=== PATIENT | female | born 1995 | race Asian ===

== ENCOUNTER 2023-10-08 10:34 | Emergency (ER) | payer OTHER ==
[~2023-10-08] VITALS: Ht 154.9 cm; Wt 64.1 kg
[2023-10-08 12:03] LABS: BASO % 0.1 % (0.0-1.0); EOS # 0.1 10^3/uL (0.0-0.5); EOS % 0.7 % (0.0-3.0); HEMATOCRIT 34.4 % (36.0-47.0); LYMPH # 1.2 10^3/uL (1.5-5.0); LYMPH % 15.8 % (24.0-44.0); MEAN CORPUSCULAR HEMOGLOBIN 28.4 pg (27.0-33.0); MEAN CORPUSCULAR VOLUME 88.7 fl (80.0-96.0); MONO # 0.4 10^3/uL (0.0-0.8); MONO % 5.8 % (2.0-8.0); NEUTROPHILS # 5.8 10^3/uL (1.5-8.5); NEUTROPHILS % 77.5 % (36.0-66.0); PLATELET COUNT, AUTOMATED 291 10^3/uL (150-450); RED BLOOD COUNT 3.88 10^6/uL (4.00-5.40); WHITE BLOOD COUNT 7.5 10^3/uL (4.0-10.0)
[2023-10-08 12:27] LABS: LIPASE 32 U/L (12-53)
[2023-10-08 12:29] LABS: ALBUMIN 3.3 G/DL (3.2-5.2); ALKALINE PHOSPHATASE 48 U/L (46-116); ALT/SGPT 18 U/L (7.0-40); AST/SGOT 15 U/L (<34); BILIRUBIN,DIRECT 0.2 MG/DL (<0.4); BILIRUBIN,TOTAL 0.5 MG/DL (0.3-1.2); BLOOD UREA NITROGEN 8 MG/DL (9-23); CALCIUM LEVEL 8.5 MG/DL (8.5-10.1); CARBON DIOXIDE LEVEL 25 MMOL/L (20-31); CHLORIDE LEVEL 107 MMOL/L (98-107); CREATININE FOR GFR 0.64 MG/DL (0.55-1.30); GLOMERULAR FILTRATION RATE > 60.0 (>60); GLUCOSE, FASTING 91 MG/DL (60-100); POTASSIUM SERUM 4.6 MMOL/L (3.5-5.1); SODIUM LEVEL 138 MMOL/L (136-145)
[2023-10-08 12:39] LABS: HCG, SERUM QUALITATIVE NEGATIVE (NEGATIVE)
[2023-10-08] MEDS ORDERED: MACR100C43 PO (13:45)
[2023-10-08] MEDS ORDERED: PYRI1TAB5 PO (13:45)
[2023-10-08] MEDS: NITROFURANTOIN (MACROBID) 100 MG CAP PO ONE (14:18)
[2023-10-08] MEDS: PHENAZOPYRIDINE 100 MG TAB PO ONE (14:18)
[2023-10-08 14:19] VITALS: BP 115/61; TEMP 97.6; O2SAT 100
[2023-10-08 14:59] LABS: Trichomonas vaginalis (AMP) NOT DETECTED (NEGATIVE)
[2023-10-08 15:22] LABS: GC DNA AMPLIFICATION NEGATIVE (NEGATIVE)
== END 2023-10-08 14:19 | disposition home or self-care (01) ==
LOC: M ED 10:34
DX: N30.00 Acute cystitis without hematuria (principal); Z91.018 Allergy to other foods